=== PATIENT | female | born 1945 | race Caucasian/White ===

== ENCOUNTER → 2024-03-09 09:13 | Outpatient (REF) | payer OTHER, SELFPAY | LOC: HWEVLT 09:13 | PROVIDERS: ATTENDING PHYSICIAN Radiology Diagnostic Radiology | DX: I83.892 Varicose veins of left lower extremity with other complications (principal) | CPT/HCPCS: 36478 ==

== ENCOUNTER 2024-03-17 10:17 | Emergency (ER) | payer OTHER, SELFPAY ==
[2024-03-17 10:32] VITALS: BP 131/85
--- NOTE | 2024-03-17 10:46 | ED.GENMED ---
History of Present Illness
General
Chief Complaint: Skin Problem
Time Seen by Provider: 03/17/24 10:45
Travel History
Have you had any contact with someone who has COVID-19?: No
Do you have any symptoms of coronavirus? Fever > 100 degrees, chills, cough, shortness of breath, sore throat, loss of taste or smell, muscle aches, or headache?: No
History of Present Illness
History of Present Illness:
HPI: POD #9 LLE venous ablation by [facility]). Saw them in f/u on POD #6 and had erythema L calf - was placed on Keflex, benadryl, and hydrocortisone cream. She is concerned for possible clot but the rash has been worsening and described as
intensely pruritic. She has had no fevers or any other systemic symptoms.
EXAM:
GENERAL: Well appearing in no distress, she is afebrile
HEENT: Moist oral mucosa
NEUROLOGIC: Excellent strength all extremities, no coordination deficits
PSYCHIATRIC: Appropriate mental status, normal insight and judgement
EXTREMITIES: Nontender, 1+ left lower extremity edema, moves all extremities equally
SKIN: There is marked erythema to the calf described as intensely pruritic with associated satellite lesions
TIME OF INITIAL ENCOUNTER: 11 AM
NUMBER AND COMPLEXITY OF PROBLEMS ADDRESSED AT THE ENCOUNTER
� Chronic conditions affecting care: Hyperlipidemia, hypothyroidism
� Acute Exacerbation and/or Progression of Chronic Illness: This is an acute problem
� Differential Diagnosis includes: Candidal infection, bacterial superinfection, cellulitis, DVT
AMOUNT AND/OR COMPLEXITY OF DATA TO BE REVIEWED AND ANALYZED
� I performed an independent evaluation of and my interpretation is:
EKG:
CT:
X-rays:
Laboratory Studies: White blood cell count normal.
Other:
� Review of other/old records: I reviewed Dr. Pedraza's note from January 2024 which indicates the patient has had thrombophlebitis in the setting of venous insufficiency and she had endovenous ablation performed.
� Clinical information was obtained by an independent historian: Spoke to the at bedside
� Prescriptions/Medications Considered but not given:
� Further testing considered but not performed:
RISK OF COMPLICATIONS AND/OR MORBIDITY OR MORTALITY OF PATIENT MANAGEMENT
� Social determinants of health affecting care: Lives at home
� Discussion with other providers: Discussed with Dr. Dumont, I also notified Dr. Calderon. Dr. Calderon felt that the images I sent him showed worsening of her rash compared to prior. Dr. Morelos evaluated the patient and
suspected more of a dermatitis as opposed to infection.
� Escalation of care including admission/observation vs risk of discharge considered: Although patient had worsening erythema, I favor more of a dermatitis versus fungal etiology. Dr. Dumont evaluated the patient at bedside.
Phy Exam
Physical Exam
Physical Exam:
See HPI
Course
Orders/Labs/Results
Orders:
Orders
03/17/24 10:55
US Legs, Left [US Periph Venous LOWER Ext LT] Urgent
Comment:
Reason For Exam: swelling
03/17/24 13:10
INFECTIOUS DISEASE CONSULT Urgent
Consulting Provider: Andre Dumont
Was physician already notified: Yes
03/17/24 13:24
Complete Blood Count/With Diff Urgent
Comprehensive Metabolic Panel Urgent
Lactic Acid Q4H
Comment: CANCEL 2nd LACTIC ACID IF 1st LACTIC ACID IS LESS THAN 2
Blood Culture Q30M
[facility] Source: Blood/Venous
Specimen Description:
03/17/24 14:12
Blood Culture Q30M
[facility] Source: Blood/Venous
Specimen Description:
Abnormal Lab Results
03/17/24
13:24
Lymphocytes % 19.7 L %
(20.5-51.1)
Eosinophils % 6.4 H %
(0-6)
BUN 18 H mg/dl
(7-17)
Lactic Acid 0.6 L mmol/L
(0.7-2.0)
03/17/24 13:24
03/17/24 13:24
Vital Signs
Initial and Last Documented VS:
Initial Vital Signs
Temp Pulse Resp BP Pulse Ox
98.9 F 89 20 131/85 96
03/17/24 10:32 03/17/24 10:32 03/17/24 10:32 03/17/24 10:32 03/17/24 10:32
Last Documented Vital Signs
Temp Pulse Resp BP Pulse Ox
98.9 F 70 16 137/72 98
03/17/24 10:32 03/17/24 15:17 03/17/24 15:17 03/17/24 15:17 03/17/24 15:17
*Critical Care Note
Total Time (30-74mins, 75-104mins- exclusive of procedures): Not Applicable
ED Attending Note
-
Portions of this chart may have been created with voice recognition software.� Occasional wrong word or��sound alike� substitutions may have occurred due to the inherent limitations of voice recognition software.
Discharge Plan
Departure
Patient Disposition: Home (Routine Discharge)
Date of Disposition: 03/17/24
Time of Disposition: 15:53
Patient with high blood pressure during this ER visit?: No
Condition: Good
Discharge Problem:
Contact dermatitis
Instructions: Contact dermatitis
Prescriptions:
New
hydrocortisone 2.5 % cream
1 applic topical TID Qty: 28 0RF
No Action
multivitamin [Daily Multiple] 1 EACH tablet
1 ea PO DAILY
levothyroxine 75 MCG tablet
75 mcg PO DAILY
Referrals:
Leighton Lam DO [Family Provider] -
Spencer Hughes MD [Active] -
Activity Restrictions/Additional Instructions:
It appears your rashes most consistent with a contact dermatitis. This reaction is likely due to the prep used prior to your procedure. Therefore antibiotics are not likely to make it go away more quickly. I have sent a prescription for a
stronger steroid cream to help with the itching. However it will mostly just take time for this to resolve.
Interventions
Interventions:
*Risk Screen - Suicide Last Done: 03/17/24 10:36
*General Assessment Last Done: 03/17/24 16:12
*Neglect/Abuse Screening Last Done: 03/17/24 10:36
ED- Fall Risk Assessment Last Done: 03/17/24 16:12
*ED COVID-19 Vaccine History Last Done: 03/17/24 10:36
*Nursing Disposition Last Done: 03/17/24 16:12
ED-Skin Assessment Last Done: 03/17/24 12:48
Discharge Date and Time
Discharge Date/Time: 03/17/24 16:13
Print Language: EMIRATI
[2024-03-17 13:38] LABS: % Basophils 1.1 % (0-2); % Eosinophils 6.4 % (0-6); % Immature Granulocytes 0.4 % (0-0.5); % Lymphocytes 19.7 % (20.5-51.1); % Monocytes 7.4 % (1.7-9.3); Absolute Basophils 0.1 10^3/uL (0-0.2); Absolute Eosinophils 0.5 10^3/uL (0-0.7); Absolute Lymphocytes 1.6 10^3/uL (1.2-3.4); Absolute Monocytes 0.6 10^3/uL (0.1-0.6); Absolute Neutrophils 5.4 10^3/uL (1.4-6.5); Hematocrit 43.7 % (37.0-47.0); Hemoglobin 14.7 g/dL (12.0-16.0); Mean Corp Hgb Conc. 33.6 g/dL (33.0-37.0); Mean Corpuscular Hgb 28.1 pg (27.0-31.0); Mean Corpuscular Volume 83.6 fL (81.0-99.0); Mean Platelet Volume 8.2 fL (7.4-10.4); Nucleated Red Blood Cells % 0 %; Platelet Count 221 10^3/uL (130-400); Red Blood Cell Count 5.23 10^6/uL (4.20-5.40); Red Cell Dist. Width 13.8 % (11.5-14.5); White Blood Cell Count 8.3 10^3/uL (4.8-10.8)
[2024-03-17 13:55] LABS: Lactic Acid 0.6 mmol/L (0.7-2.0)
[2024-03-17 13:59] LABS: ALT (SGPT) 28 U/L (0-35); AST (SGOT) 36 U/L (14-36); Albumin 4.3 g/dl (3.5-5.0); Alkaline Phosphatase 95 U/L (38-126); Blood Urea Nitrogen 18 mg/dl (7-17); Calcium 10.2 mg/dl (8.4-10.2); Carbon Dioxide 27 mmol/L (22-30); Chloride 106 mmol/L (98-107); Glucose 94 mg/dl (70-99); Potassium 4.3 mmol/L (3.5-5.1); Sodium 138 mmol/L (135-145); Total Bilirubin 0.5 mg/dl (0.2-1.3); Total Protein 6.8 g/dl (6.3-8.2); eGFR > 60.00
[2024-03-17 15:17] VITALS: BP 137/72
--- NOTE | 2024-03-17 15:59 | CON.ID ---
Consultation
-
Date/Time Consultation Requested: 03/17/2024 1308
Date/Time Consultation Performed: 03/17/2024 1600
Requesting Provider: Dr. Davis
Performing Provider: Dr. Dumont
Reason for Consultation: Left leg rash
Chief Complaint / Past History
History of Present Illness
Consuelo Paul is a 78-year-old female being evaluated regarding a left leg rash. History is obtained from chart review, along with patient interview, along with history from the patient's who was at the bedside.
Patient has a significant past medical history of left lower extremity thrombophlebitis and varicosity. She underwent vein ablation on 03/09/2024 to the left leg. She reports that the procedure went well, but several days later (03/13/2024) she noted
some erythema on the posterior aspect of her calf area. Around this time she also developed some mild pruritus which has progressed over the past 4 days, and she now reports is unbearable. She also has noted spreading redness encompassing the
entire left lower leg up to her medial mid thigh. She was seen by the proceduralist and started on Keflex several days ago. She also began to use Benadryl yesterday along with topical hydrocortisone cream. During this period of time she denies
any fevers or chills. She denies any groin pain.
In discussion with Interventional Radiology, the area is usually prepped with a ChloraPrep solution, and in the case of the patient this would have gone up to her medial mid thigh area.
The patient notes some lower extremity edema. No other rashes are noted on the body. There is no right lower extremity rash or swelling. She notes that the area feels warm.
Past History
Additional Past Medical History:
Hx breast CA with lumpectomy and XRT
Hypothyroidism
Additional Past Surgical History:
Melanoma removal
Left lower extremity vein ablation
Allergy History:
No Known Drug Allergies Allergy (Verified 07/28/17 12:49)
Unknown
Medications Reviewed: Yes
Current Antibiotics:
keflex
Social History
Tobacco: Non-Smoker
Alcohol: None
Drug: None
Personal:
Living: With Family
Employment: Retired
Family History
Family History: Not Pertinent
Review of Systems
Vital Signs
Temp Pulse Resp BP Pulse Ox
98.9 F 70 16 137/72 98
03/17/24 10:32 03/17/24 15:17 03/17/24 15:17 03/17/24 15:17 03/17/24 15:17
Physical Exam
Physical Exam
Constitutional: No Acute Distress, Comfortable and Non-toxic
Eyes: Sclera Anicteric
Cardiovascular: S1/S2; Negative S3/S4
Pulmonary: Non Labored
Gastrointestinal: Soft, Non Tender and Non Distended
Extremities: Edema (2+ LLE) and Erythema (LLE)
Skin: Rash (LLE; macular papular in nature.)
Neurological: Awake and Alert
Psychological: Calm
Lab / Diagnostic Study Results
03/17/24 13:24
03/17/24 13:24
Abs Immat Gran (auto) 0.0 10^3/uL (0-0.05) 03/17/24 13:24
Absolute Neuts (auto) 5.4 10^3/uL (1.4-6.5) 03/17/24 13:24
Absolute Lymphs (auto) 1.6 10^3/uL (1.2-3.4) 03/17/24 13:24
Absolute Monos (auto) 0.6 10^3/uL (0.1-0.6) 03/17/24 13:24
Absolute Basos (auto) 0.1 10^3/uL (0-0.2) 03/17/24 13:24
Immature Gran % 0.4 % (0-0.5) 03/17/24 13:24
Neutrophils % 65.0 % (42.2-75.2) 03/17/24 13:24
Lymphocytes % 19.7 % (20.5-51.1) L 03/17/24 13:24
Monocytes % 7.4 % (1.7-9.3) 03/17/24 13:24
Eosinophils % 6.4 % (0-6) H 03/17/24 13:24
Basophils % 1.1 % (0-2) 03/17/24 13:24
Lactic Acid Cancelled 03/17/24 17:15
Microbiology Results
Micro:
03/17/24 14:12 Blood Culture - Pending
Blood/Venous
03/17/24 13:24 Blood Culture - Pending
Blood/Venous
03/17/2024 Lower extremity duplex ultrasound: No evidence of DVT
Assessment / Plan
Left lower extremity rash
-Suspect secondary to ChloraPrep used in recent vein ablation.
Recommendations:
At present, little evidence of cellulitis as the clinical presentation is most consistent with a contact dermatitis. Given history, ChloraPrep is likely the causative agent.
Advised patient she can likely discontinue further Keflex, but she said she would like to continue with it as she felt most safe taking it.
Case discussed with ER Physician. Would defer to them regarding topical steroids, although patient may require something more potent than topical hydrocortisone.
Counseled patient that there may be some extension of the erythema and rash until it starts to begin to fade.
If no improvement, patient may require evaluation by Dermatology.
Care Review
Plan reviewed with: Physician
== END 2024-03-17 16:13 | disposition home or self-care (01) ==
LOC: EMR 10:17
PROVIDERS: CONSULT PHYSICIAN Internal Medicine Infectious Disease; EMERGENCY PHYSICIAN Emergency Medicine; FAMILY PHYSICIAN Family Medicine
DX: L25.9 Unspecified contact dermatitis, unspecified cause (principal); R60.0 Localized edema; E03.9 Hypothyroidism, unspecified; Z98.890 Other specified postprocedural states; Z85.3 Personal history of malignant neoplasm of breast; Z85.820 Personal history of malignant melanoma of skin
CPT/HCPCS: 99284; 80053; 83605; 85025; 87040; 93971

== ENCOUNTER → 2024-03-23 10:55 | Outpatient (REF) | payer OTHER, SELFPAY | LOC: HWEVLT 10:55 | PROVIDERS: ATTENDING PHYSICIAN Radiology Vascular & Interventional Radiology | DX: I83.892 Varicose veins of left lower extremity with other complications (principal) | CPT/HCPCS: 93971 ==

== ENCOUNTER → 2024-09-18 10:26 | Outpatient (REF) | payer OTHER, SELFPAY | LOC: HWWDC 10:26 | PROVIDERS: ATTENDING PHYSICIAN Surgery; FAMILY PHYSICIAN Family Medicine; REFERRING PHYSICIAN Obstetrics & Gynecology Gynecology | DX: Z12.31 Encounter for screening mammogram for malignant neoplasm of breast (principal) | CPT/HCPCS: 77063; 77067 ==

== ENCOUNTER → 2025-08-06 11:45 | Outpatient (REF) | payer OTHER, SELFPAY | LOC: HWRAD 11:45 | PROVIDERS: ATTENDING PHYSICIAN Family Medicine | DX: M54.41 Lumbago with sciatica, right side (principal); M53.3 Sacrococcygeal disorders, not elsewhere classified | CPT/HCPCS: 72110; 72202 ==

== ENCOUNTER → 2025-09-19 15:16 | Outpatient (REF) | payer OTHER, SELFPAY | LOC: HWWDC 15:16 | PROVIDERS: ATTENDING PHYSICIAN Surgery; FAMILY PHYSICIAN Family Medicine | DX: Z12.31 Encounter for screening mammogram for malignant neoplasm of breast (principal) | CPT/HCPCS: 77063; 77067 ==